=== PATIENT | male | born 1990 | race Caucasian/White ===

== ENCOUNTER 2017-05-01 16:01 | Emergency (ER) | payer BC ==
--- NOTE | 2017-05-01 16:32 | EDM.PDOC ---
Scribed by Clara Willson 05/01/17 1631 for Melo Killian MD ED HPI GENERAL MEDICAL PROBLEM - General Chief Complaint: Neck Problem Stated Complaint: NECK PAIN [phone] Time Seen by Provider: 05/01/17 16:15 Source of Information: Reports: Patient, RN, RN Notes Reviewed History Limitations: Reports: No Limitations - History of Present Illness INITIAL COMMENTS - FREE TEXT/NARRATIVE: Onset of neck pain on Tuesday (6 days ago) without specific injury. Was on vacation in [place] sleeping on different mattress and pillow and long flight and pushed strollers. Location: Reports: Neck Severity: Severe Improves with: Reports: None Worsens with: Reports: None Associated Symptoms: Reports: No Other Symptoms Left Neck Pain Score (Numeric/FACES): 6 - Related Data Allergies Allergy/AdvReac Type Severity Reaction Status Date / Time No Known Allergies Allergy Verified 05/01/17 16:13 Home Meds: Home Meds . [No Known Home Meds] 05/01/17 [History] Past Medical History Endocrine/Metabolic History: Reports: Obesity/BMI 30+ - Past Surgical History Musculoskeletal Surgical History: Reports: Other (See Below) (left knee surgery. ) ED ROS GENERAL - Review of Systems Review Of Systems: ROS reveals no pertinent complaints other than HPI. ED EXAM, GENERAL - Physical Exam Exam: See Below Exam Limited By: No Limitations General Appearance: Alert, WD/WN, No Apparent Distress, Obese Eye Exam: Bilateral Eye: Normal Inspection Ears: Normal External Exam, Normal Canal, Hearing Grossly Normal, Normal TMs Nose: Normal Inspection Throat/Mouth: Normal Inspection, Normal Lips, Normal Teeth, Normal Gums, Normal Oropharynx, Normal Voice, No Airway Compromise Head: Atraumatic, Normocephalic Neck: Limited Range of Motion, Other (Tenderness with muscle spasms to left cervical paraspinal muscle. No swelling, bruising or rash. Decreased ROM of C- spine bilateral rotation. No nuchal rigidity.). No: Carotid Bruit, Lymphadenopathy (L), Lymphadenopathy (R) Respiratory/Chest: No Respiratory Distress, Lungs Clear, Normal Breath Sounds, No Accessory Muscle Use, Chest Non-Tender Cardiovascular: Normal Peripheral Pulses, Regular Rate, Rhythm, No Edema, No Gallop, No JVD, No Murmur, No Rub Back Exam: Normal Inspection, Full Range of Motion, NT Extremities: Normal Inspection, Normal Range of Motion, Non-Tender, Normal Capillary Refill, No Pedal Edema Neurological: Alert, Oriented, CN II-XII Intact, Normal Cognition, Normal Gait, Normal Reflexes, No Motor/Sensory Deficits Psychiatric: Normal Affect, Normal Mood Skin Exam: Warm, Dry, Intact, Normal Color, No Rash Course - Vital Signs Last Recorded V/S: Last Vital Signs Temp 36.3 C 05/01/17 16:11 Pulse 71 05/01/17 16:11 Resp 18 05/01/17 16:11 BP 142/71 H 05/01/17 16:11 Pulse Ox 99 05/01/17 16:11 Departure - Departure Time of Disposition: 16:16 Disposition: Home, Self-Care 01 Condition: Good Clinical Impression: Acute cervical myofascial strain - Discharge Information Instructions: Cervical Strain and Sprain With Rehab-SportsMed, Muscle Cramps and Spasms, [id number] Forms: ED Department Discharge Additional Instructions: RX: Decadron 4mg. RX: Cyclobenzaprine 20mg. *Do not drive while under the influence of this medication. Moist hot packs to area of pain. May try gentle massage. Follow up in clinic if not improving in 3 days. I have read and agree with the documentation that has been completed regarding this visit. By signing this record, I attest that the documentation was completed in my physical presence and is an accurate record of the encounter.
== END 2017-05-01 16:25 | disposition home or self-care (01) ==
LOC: DL.ED 16:01
CPT/HCPCS: 99283

== ENCOUNTER 2021-04-06 20:58 | Emergency (ER) | payer BC ==
[2021-04-06] MEDS ORDERED: Cyclobenzaprine 10 MG Tab PO ONE ×2 (20:59→22:06)
[2021-04-06] MEDS ORDERED: Acetaminophen/HYDROcodone 325-5 MG Tab PO ONE (20:59)
[2021-04-06 21:24] VITALS: BP 104/52; PULSE 87
[2021-04-06] MEDS ORDERED: Acetaminophen/oxyCODONE 325-5 MG Tab PO ONE (22:06)
--- NOTE | 2021-04-06 22:08 | CT ---
PROCEDURE INFORMATION: Exam: CT Right Lower Extremity Without Contrast; Lower Leg Exam date and time: 04/06/2021 9:35 PM Age: 31 years old Clinical indication: Pain; Lower leg; Right; Additional info: Pain calf, sharp pain running for ball. TECHNIQUE: Imaging protocol: CT of the Right lower extremity without contrast was performed. Exam focused on the lower leg. Radiation optimization: All CT scans at this facility use at least one of these dose optimization techniques: automated exposure control; mA and/or kV adjustment per patient size (includes targeted exams where dose is matched to clinical indication); or iterative reconstruction. COMPARISON: No relevant prior studies available. FINDINGS: Bones/joints: Normal. No acute fracture or dislocation. Soft tissues: Normal. IMPRESSION: Normal appearance of the right lower extremity. If clinical symptoms persist, consider MRI for further assessment of the soft tissues.
--- NOTE | 2021-04-06 22:14 | EDM.PDOC ---
ED HPI GENERAL MEDICAL PROBLEM - General Chief Complaint: Lower Extremity Injury/Pain Stated Complaint: BY AMBULANCE Time Seen by Provider: 04/06/21 21:15 Source of Information: Reports: Patient, EMS, RN History Limitations: Reports: No Limitations - History of Present Illness INITIAL COMMENTS - FREE TEXT/NARRATIVE: ED via [facility] with c/o RLE pain sharp with increased pain with movement. States playing baseball and going after ball and sudden sharp pain with popping sensation, Currently feels like rippling pain, No numbness or tingling. has not attempted weight bearing since onset. Right Lower Leg Pain Score (Numeric/FACES): 6 - Related Data Allergies Allergy/AdvReac Type Severity Reaction Status Date / Time No Known Allergies Allergy Verified 09/13/18 15:34 Home Meds: Home Meds . [No Known Home Meds] 05/01/17 [History] Past Medical History - Past Health History Medical/Surgical History: Denies Medical/Surgical History Endocrine/Metabolic History: Reports: Obesity/BMI 30+ - Past Surgical History Musculoskeletal Surgical History: Reports: Other (See Below) Social & Family History - Family History Family Medical History: No Pertinent Family History - Tobacco Use Tobacco Use Status *Q: Never Tobacco User - Caffeine Use Caffeine Use: Reports: Soda - Alcohol Use Days Per Week of Alcohol Use: 1 Number of Drinks Per Day: 6 Total Drinks Per Week: 6 - Recreational Drug Use Recreational Drug Use: No - Living Situation & Occupation Living situation: Reports: , with Family Occupation: Employed Review of Systems - Review of Systems Review Of Systems: Comprehensive ROS is negative, except as noted in HPI. ED EXAM, GENERAL - Physical Exam Exam: See Below Exam Limited By: No Limitations General Appearance: Alert, Mild Distress Eye Exam: Bilateral Eye: EOMI, PERRL Nose: Normal Inspection Throat/Mouth: Normal Inspection Head: Atraumatic, Normocephalic Neck: Normal Inspection Respiratory/Chest: No Respiratory Distress, Lungs Clear Cardiovascular: Normal Peripheral Pulses, Regular Rate, Rhythm GI/Abdominal: Normal Bowel Sounds, Soft Back Exam: Normal Inspection, Full Range of Motion Extremities: Leg Pain (right), Limited Range of Motion (active flexion extension , slight limited end phase flexion secondary to pain, tenderness with palpation posterior upper medial calf) Neurological: Alert, Oriented, Normal Cognition Psychiatric: Normal Affect Skin Exam: Warm, Dry, Intact, Normal Color Course - Vital Signs Last Recorded V/S: Last Vital Signs Temp 98.7 F 04/06/21 21:08 Pulse 87 04/06/21 21:08 Resp 16 04/06/21 21:08 BP 104/52 L 04/06/21 21:08 Pulse Ox 100 04/06/21 21:08 - Orders/Labs/Meds Meds: Medications Discontinued Medications Generic Name Dose Route Start Last Admin Trade Name Angel PRN Reason Stop Dose Admin Cyclobenzaprine HCl 10 mg 04/06/21 22:06 04/06/21 22:14 Cyclobenzaprine 10 Mg Tab PO 04/06/21 22:07 10 mg ONETIME ONE Administration Cyclobenzaprine HCl Confirm 04/06/21 22:35 04/06/21 22:42 Cyclobenzaprine 10 Mg Tab Administered 04/06/21 22:36 Not Given Dose 10 mg .ROUTE .STK-MED ONE Oxycodone/Acetaminophen 1 tab 04/06/21 22:06 04/06/21 22:13 Acetaminophen/Oxycodone 325-5 Mg Tab PO 04/06/21 22:07 1 tab ONETIME ONE Administration Oxycodone/Acetaminophen Confirm 04/06/21 22:36 04/06/21 22:42 Acetaminophen/Oxycodone 325-5 Mg Tab Administered 04/06/21 22:37 Not Given Dose 2 tab .ROUTE .STK-MED ONE Departure - Departure Time of Disposition: 22:14 Disposition: Home, Self-Care 01 Condition: Good Clinical Impression: Muscle strain of left lower extremity Qualifiers: Encounter type: initial encounter Qualified Code(s): S86.912A - Strain of unspecified muscle(s) and tendon(s) at lower leg level, left leg, initial encounter - Discharge Information *PRESCRIPTION DRUG MONITORING PROGRAM REVIEWED*: No *COPY OF PRESCRIPTION DRUG MONITORING REPORT IN PATIENT MAX: No Instructions: Muscle Strain, [id number] Referrals: PCP,None [Primary Care Provider] - Forms: ED Department Discharge Additional Instructions: clinic follow up non weight bearing rest ice elevation crutchs ibuprofen 600mg one every 6 hours Sepsis Event Note (ED) - Evaluation Sepsis Screening Result: No Definite Risk - Focused Exam Vital Signs: Vital Signs Temp Pulse Resp BP Pulse Ox 04/06/21 21:08 98.7 F 87 16 104/52 L 100
[2021-04-06] MEDS ORDERED: Cyclobenzaprine 10 MG Tab ONE (22:35)
[2021-04-06] MEDS ORDERED: Acetaminophen/oxyCODONE 325-5 MG Tab ONE (22:36)
== END 2021-04-06 22:45 | disposition home or self-care (01) ==
LOC: DL.ED 20:58
DX: S86.912A Strain of unspecified muscle(s) and tendon(s) at lower leg level, left leg, initial encounter (principal); E66.9 Obesity, unspecified; Z68.30 Body mass index [BMI] 30.0-30.9, adult; X58.XXXA Exposure to other specified factors, initial encounter; Y93.64 Activity, baseball
CPT/HCPCS: 73700; 99284; A9270; 99283